=== PATIENT | male | born 1975 | race Caucasian/White ===

== ENCOUNTER 2019-12-31 09:15 | Outpatient (REF) | payer MEDICAID, SELFPAY ==
--- NOTE | 2019-12-31 09:33 | XR_ITS ---
EXAMINATION: XR THORACIC SPINE CLINICAL INFORMATION: Pain in thoracic spine COMPARISON: None TECHNIQUE: 2 views of the thoracic spine were obtained. FINDINGS: There is no fracture or subluxation. Vertebral body height and alignment is maintained. Disc spaces are maintained with small endplate osteophytes at the lower thoracic spine. The paravertebral soft tissues are unremarkable. The visualized lungs are clear. XR/XR thoracic spine 3V IMPRESSION: No acute abnormality. Mild spondylosis at the lower thoracic spine.
== END 2019-12-31 09:16 | disposition home or self-care (01) ==
LOC: HO.XRAY 09:15
PROVIDERS: PCP Internal Medicine; Visit Provider Internal Medicine
DX: M54.6 Pain in thoracic spine (principal)
CPT/HCPCS: 72072

== ENCOUNTER 2020-02-11 16:18 | Emergency (ER) | payer MEDICAID, SELFPAY ==
[2020-02-11 18:42] VITALS: BP 152/91; PULSE 82; RESP 17; TEMP 36.5; O2SAT 97; BMI 39.7
--- NOTE | 2020-02-11 19:32 | ED.SKABFB ---
HPI - Skin/Abscess/Foreign Bdy General Chief complaint: Skin/Abscess/Foreign Body Stated complaint: finger swelling Time Seen by Provider: 02/11/20 18:50 History of Present Illness HPI narrative: Patient complains of pain and swelling in the right 3rd finger for 2-3 days after playing with his dog and he accidentally banged the finger on the dog's tooth sustaining a very small abrasion and now the finger tip of the right 3rd finger is swollen and painful, no fever no chills The dog is up-to-date on rabies immunization Related Data Previous Rx's Medication Instructions Recorded amoxicillin-pot clavulanate 1 tab PO BID 7 Days #14 tab 02/11/20 [Augmentin] doxycycline hyclate 100 mg PO BID 7 Days #14 cap 02/11/20 ibuprofen 600 mg PO Q6H PRN #20 tab 02/11/20 Allergies Allergy/AdvReac Type Severity Reaction Status Date / Time No Known Allergies Allergy Verified 02/11/20 18:50 Review of Systems Review of Systems: Positive for right middle finger tip pain and swelling No fever no chills no weakness no dizziness no cough no chest pain no vomiting PMFSH Past Medical History Attestation statement: The following information was validated with the patient. Medical History (Updated 02/12/20 @ 21:46 by PETROS Garcias) No known health problems Social History Social History Smoking Status: Current every day smoker Use of substances other than those prescribed or required for medical reasons: No Advance Directives: No Advance Directives Information Provided: Yes Physical Exam Vital Signs: Vital Signs: Last Vital Signs Temp 97.7 F 02/11/20 18:42 Pulse 82 02/11/20 18:42 Resp 17 02/11/20 18:42 BP 152/91 H 02/11/20 18:42 Pulse Ox 97 02/11/20 18:42 Body Mass Index 39.7 General appearance no acute distress Head is normocephalic atraumatic The neck is supple Respiratory no distress Extremities the right 3rd finger tuft, palmar aspect of finger tip is mildly red mildly swollen mildly fluctuant, the joints are not affected, there is full range of motion in all joints and the finger can extend and flex comfortably, infection is limited to the pulp of the finger tip Neurovascular intact Skin no other rashes Course Course Course Narrative: Procedure note the right 3rd finger tip was cleansed with Betadine Anesthesia was 6 cc of 1% lidocaine in a digital block of the right 3rd finger which was successful Assist incision was made on the side of the finger tip and probed with forceps deeply with discharge of a small amount of pus, there was remaining induration and mild swelling to the finger tip, note a small amount of packing was placed and a dressing was applied and patient advised to return in 2 days and antibiotics were started Discharge Plan Discharge Clinical Impression: Abscess of skin or subcutaneous tissue Patient Disposition: Home, Self-Care Additional Instructions: I drained a small amount of pus from the infected finger, and placed a 6 small packing You can soak the finger in Epsom salts frequently which may dry out more pus If the packing falls out to not replace it Return to the ER in 2 days for packing removal and wound check As wound is from a dog's tooth we are covering dog bite with appropriate antibiotics and we gave you a tetanus shot Return any time for worse pain and swelling, spreading redness, fever, any sign of worsening infection or any concerns Prescriptions: New doxycycline hyclate 100 mg capsule 100 mg PO BID 7 Days Qty: 14 RF: 0 ibuprofen 600 mg tablet 600 mg PO Q6H PRN (Reason: pain) Qty: 20 RF: 0 amoxicillin-pot clavulanate [Augmentin] 875-125 mg tablet 1 tab PO BID 7 Days Qty: 14 RF: 0 Interventions: ED Discharge Assessment Last Done: 02/11/20 20:09 Discharge Date/Time: 02/11/20 20:10
[2020-02-11] MEDS: Lidocaine HCl 1 % MPF 5 ML VIAL SUBCUT ×2 (19:44)
[2020-02-11] MEDS: Amoxicillin/Potassium Clav 875 MG TABLET PO (19:44)
== END 2020-02-11 20:10 | disposition home or self-care (01) ==
PROVIDERS: Emergency Provider Emergency Medicine
DX: L02.511 Cutaneous abscess of right hand (principal); S60.412A Abrasion of right middle finger, initial encounter; W54.0XXA Bitten by dog, initial encounter; F17.200 Nicotine dependence, unspecified, uncomplicated; Y93.9 Activity, unspecified; Y92.019 Unspecified place in single-family (private) house as the place of occurrence of the external cause; Y99.9 Unspecified external cause status
CPT/HCPCS: 26010; 87071; 87147; 87186; 87205; 90471; 90715; 99284

== ENCOUNTER 2021-03-16 21:20 | Emergency (ER) | payer MEDICAID, SELFPAY ==
[2021-03-16 21:37] VITALS: BP 130/87; PULSE 64; RESP 16; TEMP 37.1; O2SAT 99; BMI 36.8
--- NOTE | 2021-03-16 21:57 | PC.NURSE ---
PT DRANK APPROX 1PM ACCIDENTALLY DRANK 1 MOUTH FULL OF ANTIFREEZE. PT DENIES PAIN, N/V, DIZZINESS AND HAS EATEN AND DRANK SINCE THEN. PT STATES IS JUST NERVOUS AND WANTED TO BE CHECKED OUT.
--- NOTE | 2021-03-16 22:05 | ED_ITS ---
HPI - General Adult General Chief complaint: General Medical Stated complaint: sipped antifreeze by accident Time Seen by Provider: 03/16/21 22:05 History of Present Illness HPI narrative: Patient complains that he ingested a small amount of antifreeze 8 hours ago which she kept in a coffee cup and confused it with his real coffee cup and accidentally drank 1 gulp of antifreeze He is asymptomatic now with no abdominal pain no nausea no vomiting no confusion and no other complaint Related Data Previous Rx's Medication Instructions Recorded amoxicillin 875 mg-potassium 1 tab PO BID 7 Days #14 tab 02/11/20 clavulanate 125 mg tablet (Augmentin) doxycycline hyclate 100 mg capsule 100 mg PO BID 7 Days #14 cap 02/11/20 ibuprofen 600 mg tablet 600 mg PO Q6H PRN #20 tab 02/11/20 sulfamethoxazole 800 1 tab PO BID 10 Days #20 tab 02/14/20 mg-trimethoprim 160 mg tablet (Bactrim DS) Allergies Allergy/AdvReac Type Severity Reaction Status Date / Time No Known Allergies Allergy Verified 03/16/21 21:45 Review of Systems Verdana 4l Review of Systems: Verdana 4d Verdana 4d Positive for antifreeze ingestion Negatives are no fever no chills no dizziness no weakness no confusion no lightheadedness no headache no neck pain no chest pain no shortness of breath no nausea vomiting or diarrhea no dysuria no leg swellingswelling Yes all other systems are reviewed and are negative [facility] Past Medical History Medical History (Updated 03/17/21 @ 00:41 by PETROS Garcias) No known health problems Social History Social History Advance Directives: No Advance Directives Information Provided: No Physical Exam Verdana 4l Vital Signs: Verdana 4d Verdana 4d Vital Signs: Verdana 4d Verdana 4Bd Last Vital Signs Verdana 4d Topography Technician New 4d Topography Technician New 4d Temp 98.7 F 03/16/21 21:37 Topography Technician New 4d Pulse 56 03/16/21 23:54 Topography Technician New 4d Resp 16 03/16/21 23:54 BP 115/72 03/16/21 23:54 Pulse Ox 98 03/16/21 23:54 BMI result Body Mass Index 36.6 General appearance is comfortable no acute distress The eyes are anicteric, pupils equal round reactive to light extraocular motions are intact The pharynx is moist and well hydrated Neck is supple Chest clear to auscultation bilateral Heart no murmur Abdomen soft nontender Extremities full range of motion x4 Neuro gait and balance are normal, comprehension and expression are normal motor is 5/5 x4 sensation is intact and symmetrical Course Course Course Narrative: Patient who ingested a unknown quantity of antifreeze 9 hours ago and is asymptomatic with normal vital signs Case was discussed with poison control and they advised to give fomepizole antidote to ethylene glycol as a precaution They advised checking osmolality electrolytes calcium and a UA as well as sending volatile alcohols and ethylene glycol levels Volatile alcohols and ethylene glycol have to be sent to another lab and this was done Patient got the dose of medication with no adverse reaction Labs came back and were normal with normal osmolality and normal osmolar gap, normal calcium normal sodium normal glucose normal renal function Results were discussed with poison Control who agreed it was safe to discharge this patient after completion of his medication and he will be called back ulna follow tall alcohol levels are elevated These may not come back for 10-12 hours and patient can easily be called if needed This was discussed with attending physician Arleen who agrees with the plan and well-appearing asymptomatic patient was discharged Medical Decision Making Lab Data Lab results reviewed: Yes I reviewed the patient's lab results. Result diagrams: 03/16/21 23:42 03/16/21 23:42 Labs: Lab Results 03/16/21 03/16/21 03/16/21 Range/Units 22:30 23:42 23:42 WBC 6.1 (4.8-10.8) X10*3/uL RBC 4.61 (4.60-5.80) X10*6/uL Hgb 14.6 (14.0-18.0) g/dl Hct 43.1 (42.0-52.0) % MCV 93.5 (80.0-98.0) fL MCH 31.7 (27.0-33.0) pg MCHC 33.9 (31.0-36.0) g/dl RDW 11.8 (11.0-16.0) % Plt Count 144 L (160-400) X10*3/uL MPV 9.8 (9.4-12.4) fL Immature Gran % (Auto) 0.2 (0.0-0.4) % Neut % (Auto) 56.0 (45-73) % Lymph % (Auto) 33.9 (20-40) % [place] % (Auto) 8.0 (2-11) % Eos % (Auto) 1.6 (0-4) % Baso % (Auto) 0.3 (0-2) % Lymph # (Auto) 2.1 (1.2-4.9) X10*3/uL [place] # (Auto) 0.5 (0.1-1.2) X10*3/uL Eos # (Auto) 0.1 (0.0-0.4) X10*3/uL Baso # (Auto) 0.0 (0.0-0.2) X10*3/uL Abs Immat Gran (auto) 0.01 (0.00-0.03) X10*3/uL Absolute Neuts (auto) 3.4 (2.0-8.3) x10*3/uL Absolute Nucleated RBC 0.000 (0.0-0.012) X10*3/uL Nucleated RBC % (auto) 0.0 (0.0-0.2) /100WBC Sodium 138 (135-145) mmol/L Potassium 4.5 (3.3-5.1) mmol/L Chloride 103 (96-108) mmol/L Carbon Dioxide 26 (22-29) mmol/L Anion Gap 14 (12-20) BUN 11 (9-16) mg/dL Creatinine 0.82 (0.5-1.4) mg/dL Estim Creat Clear Calc 134.8 Estimated GFR > 60 Random Glucose 98 (60-115) mg/dL Osmolality (281-305) mosm/kg Calcium 9.0 (8.4-10.2) mg/dL Urine Color YELLOW Urine Appearance CLEAR Urine pH 6.0 (5.0-8.0) Ur Specific [place] >= 1.030 H (1.005-1.025) Urine Protein NEG (NEG-TRACE) MG/DL Urine Glucose (UA) NEG (NEG) MG/DL Urine Ketones NEG (NEG) MG/DL Urine Blood NEG (NEG) Urine Nitrite NEG (NEG) Ur Leukocyte Esterase NEG (NEG) Ethyl Alcohol mg/dL 03/16/21 03/16/21 Range/Units 23:42 23:42 WBC (4.8-10.8) X10*3/uL RBC (4.60-5.80) X10*6/uL Hgb (14.0-18.0) g/dl Hct (42.0-52.0) % MCV (80.0-98.0) fL MCH (27.0-33.0) pg MCHC (31.0-36.0) g/dl RDW (11.0-16.0) % Plt Count (160-400) X10*3/uL MPV (9.4-12.4) fL Immature Gran % (Auto) (0.0-0.4) % Neut % (Auto) (45-73) % Lymph % (Auto) (20-40) % [place] % (Auto) (2-11) % Eos % (Auto) (0-4) % Baso % (Auto) (0-2) % Lymph # (Auto) (1.2-4.9) X10*3/uL [place] # (Auto) (0.1-1.2) X10*3/uL Eos # (Auto) (0.0-0.4) X10*3/uL Baso # (Auto) (0.0-0.2) X10*3/uL Abs Immat Gran (auto) (0.00-0.03) X10*3/uL Absolute Neuts (auto) (2.0-8.3) x10*3/uL Absolute Nucleated RBC (0.0-0.012) X10*3/uL Nucleated RBC % (auto) (0.0-0.2) /100WBC Sodium (135-145) mmol/L Potassium (3.3-5.1) mmol/L Chloride (96-108) mmol/L Carbon Dioxide (22-29) mmol/L Anion Gap (12-20) BUN (9-16) mg/dL Creatinine (0.5-1.4) mg/dL Estim Creat Clear Calc Estimated GFR Random Glucose (60-115) mg/dL Osmolality 289 (281-305) mosm/kg Calcium (8.4-10.2) mg/dL Urine Color Urine Appearance Urine pH (5.0-8.0) Ur Specific [place] (1.005-1.025) Urine Protein (NEG-TRACE) MG/DL Urine Glucose (UA) (NEG) MG/DL Urine Ketones (NEG) MG/DL Urine Blood (NEG) Urine Nitrite (NEG) Ur Leukocyte Esterase (NEG) Ethyl Alcohol < 10 mg/dL Discharge Plan Discharge Clinical Impression: Ingestion of toxic substance Additional Instructions: Accidentally drinking antifreeze can cause serious poisoning In the ER we gave the antidote as well as checked labs to be sure that you are safe to go home Labs were okay and remained stable throughout her visit so you will be discharged there is 1 remaining blood test which measures toxic alcohol levels, but it will not come back until sometime tomorrow If the levels are found to be too high you will be called back to return to the hospital for another dose of the antidote It may be a good idea to call the physician doctor assistant who does morning follow-up labs at [phone] and ask come to check if the volatile alcohol level came back Return any time for any worse condition or any concerns Prescriptions: No Action doxycycline hyclate 100 mg capsule 100 mg PO BID 7 Days Qty: 14 0RF ibuprofen 600 mg tablet 600 mg PO Q6H PRN (Reason: pain) Qty: 20 0RF amoxicillin-pot clavulanate [Augmentin] 875-125 mg tablet 1 tab PO BID 7 Days Qty: 14 0RF sulfamethoxazole-trimethoprim [Bactrim DS] 800-160 mg tablet 1 tab PO BID 10 Days Qty: 20 0RF
[2021-03-16 22:18] VITALS: BMI 36.6
[2021-03-16 22:39] LABS: Appearance Urine CLEAR; Color Urine YELLOW; Glucose Urine UA NEG (NEG); Leukocyte Esterase Urine NEG (NEG); Nitrite Urine NEG (NEG); Specific Gravity - Urine >= 1.030 (1.005-1.025); Urine Blood NEG (NEG); Urine Ketones NEG (NEG); Urine Protein NEG (NEG-TRACE)
[2021-03-16 23:46] LABS: MANUAL DIFF FLAG NO
[2021-03-16] MEDS: FOMEPIZOLE IV (23:46)
[2021-03-16] MEDS: SODIUM CHLORIDE 0.9% IV (23:46)
[2021-03-16 23:48] LABS: Basophils Percent Auto 0.3 % (0-2); Eosinophils Absolute Auto 0.1 X10*3/uL (0.0-0.4); Eosinophils Percent Auto 1.6 % (0-4); Hematocrit 43.1 % (42.0-52.0); Hemoglobin 14.6 g/dl (14.0-18.0); Imm Gran Abs Auto 0.01 X10*3/uL (0.00-0.03); Imm Gran Pct Auto 0.2 % (0.0-0.4); Lymphocytes Absolute Auto 2.1 X10*3/uL (1.2-4.9); Lymphocytes Percent Auto 33.9 % (20-40); Mean Corpuscular HGB Conc 33.9 g/dl (31.0-36.0); Mean Corpuscular Hemoglobin 31.7 pg (27.0-33.0); Mean Corpuscular Volume 93.5 fL (80.0-98.0); Mean Platelet Volume 9.8 fL (9.4-12.4); Monocytes Absolute Auto 0.5 X10*3/uL (0.1-1.2); Neutrophils Absolute Auto 3.4 x10*3/uL (2.0-8.3); Platelet Count 144 X10*3/uL (160-400); Red Blood Count 4.61 X10*6/uL (4.60-5.80); Red Cell Distribution Width 11.8 % (11.0-16.0); White Blood Count 6.1 X10*3/uL (4.8-10.8)
[2021-03-16 23:54] VITALS: BP 115/72; PULSE 56; RESP 16; O2SAT 98
--- NOTE | 2021-03-16 23:56 | PC.NURSE ---
BRAYAN SHAH CALLED AND SPOKE TO PROVIDER AND THIS NURSE. RECOMMEND IV ANTIZOL 15MG/KG AND LACSBMP,CALCIUM,ETOH, VOLATILE ALCOHOL. VOLATILES ARE SENT OUT TO [facility]. HAD DIFFICULTY ESTABLISHING AN IV. MED INFUSING NOW. PT ON MEDICAID SPECIALIST. [place] [id number]
[2021-03-17 00:02] LABS: Ethanol < 10 mg/dL
[2021-03-17 00:04] LABS: Anion Gap 14 (12-20); Blood Urea Nitrogen 11 mg/dL (9-16); Carbon Dioxide 26 mmol/L (22-29); Chloride 103 mmol/L (96-108); Creatinine Clr Calc Pharmacy 134.8; Estimated Glomerular Filt Rate > 60; Glucose Random 98 mg/dL (60-115); Potassium 4.5 mmol/L (3.3-5.1); Sodium 138 mmol/L (135-145)
[2021-03-17 00:08] LABS: Osmolality, Serum 289 mosm/kg (281-305)
[2021-03-17 00:38] VITALS: BP 118/63; PULSE 55; RESP 16; O2SAT 97
[2021-03-17 04:07] LABS: Acetone NONE DETECTED (NONE DETECTED); Analysis performed on: SERUM/PLASMA; Ethyl Alcohol g/dL (%) NONE DETECTED g/dL(%) (NONE DETECTED); Ethyl Alcohol mg/dL NONE DETECTED (NONE DETECTED); Isopropanol NONE DETECTED (NONE DETECTED)
[2021-03-17 04:32] LABS: Ethylene Glycol NONE DETECTED (NONE DETECTED)
[2021-03-17 06:41] LABS: Methyl Alcohol NONE DETECTED
== END 2021-03-17 01:07 | disposition home or self-care (01) ==
PROVIDERS: Physician Assistant Medical; Emergency Provider Emergency Medicine
DX: T51.8X1A Toxic effect of other alcohols, accidental (unintentional), initial encounter (principal); Y92.9 Unspecified place or not applicable
CPT/HCPCS: 36415; 80048; 80320; 81003; 82077; 82693; 83930; 85025; 96365; 99284; J1451

== ENCOUNTER 2024-03-21 10:27 | Outpatient (REF) | payer MEDICAID, SELFPAY ==
[2024-03-21 13:16] LABS: Hematocrit 39.5 % (42.0-52.0); Hemoglobin 13.2 g/dl (14.0-18.0); Mean Corpuscular HGB Conc 33.4 g/dl (31.0-36.0); Mean Corpuscular Hemoglobin 30.7 pg (27.0-33.0); Mean Corpuscular Volume 91.9 fL (80.0-98.0); Mean Platelet Volume 9.9 fL (9.4-12.4); Platelet Count 156 X10*3/uL (160-400); Red Cell Distribution Width 12.8 % (11.0-16.0); White Blood Count 5.1 X10*3/uL (4.8-10.8)
[2024-03-21 13:32] LABS: Alanine Aminotransferase 47 U/L (0-40); Albumin Level 4.2 g/dL (3.5-5.0); Alkaline Phosphatase 112 U/L (39-117); Anion Gap 12 (12-20); Aspartate Amino Transferase 34 U/L (5-37); Bilirubin Total 0.4 mg/dL (0.0-1.0); Blood Urea Nitrogen 11 mg/dL (9-16); Calcium 8.7 mg/dL (8.4-10.2); Carbon Dioxide 27 mmol/L (22-29); Chloride 104 mmol/L (96-108); Estimated Glomerular Filt Rate > 60; Glucose Random 102 mg/dL (60-115); Potassium 3.9 mmol/L (3.3-5.1); Sodium 139 mmol/L (135-145); Total Protein 7.6 g/dL (6.5-8.0)
[2024-03-21 13:42] LABS: HBsAGNum1 0.37 S/CO (0.00-0.99); HIV AB/AG Nonreactive (Nonreactive); HIV Num 1 0.05 S/CO (0.00-0.99); Hepatitis B Surface Antigen Negative (Negative); ~HepC Num1 0.08 S/CO (0.00-0.79); ~Hepatitis B Surface Antibody NONREACTIVE (Nonreactive); ~Hepatitis C Antibody Nonreactive (Nonreactive)
== END 2024-03-21 10:28 | disposition home or self-care (01) ==
LOC: HO.HHCL 10:27
PROVIDERS: Visit Provider Family Medicine
DX: Z11.4 Encounter for screening for human immunodeficiency virus [HIV] (principal); F11.10 Opioid abuse, uncomplicated
CPT/HCPCS: 36415; 80053; 85027; 86706; 86803; 87340; 87389